=== PATIENT | female | born 1960 | race Caucasian/White ===

== ENCOUNTER 2018-09-26 20:06 | Emergency (ER) | payer BC ==
[2018-09-26 20:21] VITALS: BP 151/61
[2018-09-26] MEDS ORDERED: Lidocaine 1% 10 ML MDV INJECT ONE (20:29)
--- NOTE | 2018-09-26 21:06 | EDM.PDOC ---
ED HPI GENERAL MEDICAL PROBLEM - General Chief Complaint: Laceration Stated Complaint: RIGHT HAND LACERATION,PINKIE FINGER Time Seen by Provider: 09/26/18 20:15 Source of Information: Reports: Patient History Limitations: Reports: No Limitations - History of Present Illness INITIAL COMMENTS - FREE TEXT/NARRATIVE: The patient presents with a laceration to the right little finger. She was doing dishes and she cut her finger on a knife. She is right handed. Her tetanus is up to date. Onset: Sudden Duration: Minutes: Location: Reports: Lower Extremity, Right (little finger) Quality: Reports: Sharp Severity: Mild Improves with: Reports: None Worsens with: Reports: None Associated Symptoms: Reports: No Other Symptoms Right Finger-Little Pain Score (Numeric/FACES): 2 - Related Data Allergies Allergy/AdvReac Type Severity Reaction Status Date / Time No Known Allergies Allergy Verified 09/26/18 20:15 Home Meds: Home Meds Cholecalciferol (Vitamin D3) [Vitamin D3] 1 tab PO DAILY 06/22/14 [History] Fish Oil/[place]-3 Fatty Acids [Fish Oil 1,000 MG] 1 tab PO DAILY 06/22/14 [ History] Aspirin/Calcium Carbonate/Mag [Aspirin Buffered 325 mg Tab] 325 mg PO DAILY 03/31 [History] Dronedarone [Multaq] 400 mg PO BID 09/24/14 [History] L.acidoph,Paracasei, B.lactis [Probiotic] 1 cap PO DAILY 09/26/18 [History] Metoprolol Succinate 25 mg PO DAILY 09/26/18 [History] PARoxetine [Paxil] 10 mg PO DAILY 09/26/18 [History] Turmeric [Curcumin] 1 cap PO DAILY 09/26/18 [History] Past Medical History Cardiovascular History: Reports: Afib Other Cardiovascular History: AAA - 4.5mm since 09/2018 Social & Family History - Tobacco Use Smoking Status *Q: Never Smoker - Caffeine Use Caffeine Use: Reports: None - Recreational Drug Use Recreational Drug Use: No ED ROS GENERAL - Review of Systems Review Of Systems: See Below Constitutional: Reports: No Symptoms HEENT: Reports: No Symptoms Respiratory: Reports: No Symptoms Cardiovascular: Reports: No Symptoms Endocrine: Reports: No Symptoms GI/Abdominal: Reports: No Symptoms : Reports: No Symptoms Musculoskeletal: Reports: Other (laceration to the right little finger) ED EXAM, SKIN/RASH Exam: See Below Exam Limited By: No Limitations General Appearance: Alert, No Apparent Distress Ears: Normal External Exam Nose: Normal Inspection Head: Atraumatic, Normocephalic Neck: Normal Inspection Respiratory/Chest: No Respiratory Distress Extremities: Other (1.5cm laceration to the tip of the right little finger. Good sensation and capillary distally) ED SKIN PROCEDURES - Laceration/Wound Repair Right Digit - 5th (Baby) Lac/Wound length In cm: 1.5 Appearance: Subcutaneous, Linear Distal NVT: Neuro & Vascular Intact Anesthetic Type: Local Local Anesthesia - Lidocaine (Xylocaine): 1% Plain Skin Prep: Saline Exploration/Debridement/Repair: Wound Explored, In a Bloodless Field, Explored to Base Closed with: Sutures Suture Size: 4-0 # of Sutures: 3 Suture Type: Nylon, Interrupted, Simple Tetanus Status Addressed: Yes Complications: No Course - Vital Signs Last Recorded V/S: Last Vital Signs Temp 97.7 F 09/26/18 20:18 Pulse 66 09/26/18 20:18 Resp 20 09/26/18 20:18 BP 151/61 H 09/26/18 20:18 Pulse Ox 97 09/26/18 20:18 - Orders/Labs/Meds Meds: Medications Discontinued Medications Generic Name Dose Route Start Last Admin Trade Name Zelalem PRN Reason Stop Dose Admin Lidocaine HCl 10 ml 09/26/18 20:29 09/26/18 20:43 Xylocaine 1% INJECT 09/26/18 20:30 10 ml ONETIME ONE Administration Departure - Departure Time of Disposition: 21:10 Disposition: Home, Self-Care 01 Condition: Good Clinical Impression: Laceration of right little finger Qualifiers: Encounter type: initial encounter Damage to nail status: without damage Foreign body presence: without foreign body Qualified Code(s): S61.216A - Laceration without foreign body of right little finger without damage to nail, initial encounter - Discharge Information *PRESCRIPTION DRUG MONITORING PROGRAM REVIEWED*: Not Applicable *COPY OF PRESCRIPTION DRUG MONITORING REPORT IN PATIENT VAL: Not Applicable Referrals: Anjum Jordan MD [Primary Care Provider] - 1 Week Additional Instructions: Soak your finger in warm soapy water 2 times per day and apply antibiotic ointment after. Have the sutures removed in 1 week. Please return if you see any signs of infection such as redness, swelling, pain or drainage. If you see any of these signs please return or see your doctor. You may need oral antibiotics.
== END 2018-09-26 21:17 | disposition home or self-care (01) ==
LOC: JD.ED 20:06
DX: S61.216A Laceration without foreign body of right little finger without damage to nail, initial encounter (principal); I48.91 Unspecified atrial fibrillation; Z79.899 Other long term (current) drug therapy; Z79.82 Long term (current) use of aspirin; W26.0XXA Contact with knife, initial encounter
CPT/HCPCS: 12001; 99282; J2001

== ENCOUNTER 2018-11-08 19:51 | Emergency (ER) | payer BC ==
[2018-11-08 20:03] VITALS: BP 133/79
--- NOTE | 2018-11-08 23:55 | EDM.PDOC ---
ED HPI GENERAL MEDICAL PROBLEM - General Chief Complaint: Cardiovascular Problem Stated Complaint: AFIB Time Seen by Provider: 11/08/18 21:15 Source of Information: Reports: Patient, Old Records History Limitations: Reports: No Limitations - History of Present Illness INITIAL COMMENTS - FREE TEXT/NARRATIVE: 58-year-old female presents for evaluation and treatment of "A. fib". She has paroxysmal atrial fibrillation. Currently on muntaq bid, metoprolol daily and aspirin 325. She states that she has been ill for the last week with a dry cough , chills, fatigue and a sore throat. She has been taking DayQuil and NyQuil. She states that her stomach "feels funny". No nausea, vomiting or diarrhea. Patient reports that she is exhausted from having a fast heart rate. Currently on a monitor her heart rates in the 90s. She states normally she runs 60-65; she is exhausted from this. 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 Last visit with him was September 23. She did contact him only today and has not heard a back from him. She reports associated symptoms of shortness of breath, palpitations. She denies any chest pain. Primary care provider here is Dr. Liu. Duration: Day(s): (10) - Related Data Allergies Allergy/AdvReac Type Severity Reaction Status Date / Time No Known Allergies Allergy Verified 09/26/18 20:15 Home Meds: Home Meds Cholecalciferol (Vitamin D3) [Vitamin D3] 1 tab PO DAILY 06/22/14 [History] Fish Oil/[place]-3 Fatty Acids [Fish Oil 1,000 MG] 1 tab PO DAILY 06/22/14 [ History] Aspirin/Calcium Carbonate/Mag [Aspirin Buffered 325 mg Tab] 325 mg PO DAILY 03/31 [History] Dronedarone [Multaq] 400 mg PO BID 09/24/14 [History] L.acidoph,Paracasei, B.lactis [Probiotic] 1 cap PO DAILY 09/26/18 [History] Metoprolol Succinate 25 mg PO DAILY 09/26/18 [History] PARoxetine [Paxil] 10 mg PO DAILY 09/26/18 [History] Turmeric [Curcumin] 1 cap PO DAILY 09/26/18 [History] Amoxicillin 500 mg PO BID #20 capsule 11/08/18 [Rx] Benzonatate [Tessalon Perle] 100 mg PO TID PRN #15 capsule 11/08/18 [Rx] Past Medical History Cardiovascular History: Reports: Afib Other Cardiovascular History: AAA - 4.5mm since 09/2018 Social & Family History - Family History Family Medical History: Noncontributory - Tobacco Use Smoking Status *Q: Never Smoker - Caffeine Use Caffeine Use: Reports: None - Recreational Drug Use Recreational Drug Use: No ED ROS GENERAL - Review of Systems Review Of Systems: See Below Constitutional: Reports: Chills, Fatigue HEENT: Reports: Throat Pain Respiratory: Reports: Shortness of Breath, Cough Cardiovascular: Reports: Palpitations. Denies: Chest Pain GI/Abdominal: Reports: Abdominal Pain. Denies: Diarrhea, Nausea, Vomiting Musculoskeletal: Reports: Back Pain ED EXAM, GENERAL - Physical Exam Exam: See Below Exam Limited By: No Limitations General Appearance: Alert, WD/WN, No Apparent Distress Ears: Normal External Exam, Normal Canal, Hearing Grossly Normal, Normal TMs Nose: Normal Inspection Throat/Mouth: Normal Inspection, Normal Lips, Normal Voice, No Airway Compromise Respiratory/Chest: No Respiratory Distress, Lungs Clear, Normal Breath Sounds Cardiovascular: Normal Peripheral Pulses, Regular Rate, Rhythm, No Murmur Neurological: Alert, Oriented, Normal Cognition Psychiatric: Normal Affect, Normal Mood Skin Exam: Warm, Dry, Normal Color EKG INTERPRETATION EKG Date: 11/08/18 Time: 19:55 Rhythm: NSR Rate (Beats/Min): 97 EKG Interpretation Comments: normal sinus rhythm at 97 bpm. + LAE. No AVB. 1mm ST depression in the aterolateral leads. Normal transition. No LAD/RAD. No LVH/RVH. No IVCD. QTc within normal limits. Reviewed by myself and Dr. Mccartney. Course - Vital Signs Last Recorded V/S: Last Vital Signs Temp 99.7 F 11/08/18 19:58 Pulse 97 11/08/18 19:58 Resp 20 11/08/18 19:58 BP 133/79 11/08/18 19:58 Pulse Ox 98 11/08/18 19:58 - Orders/Labs/Meds Labs: Laboratory Tests 11/08/18 11/08/18 11/08/18 Range/Units 21:50 21:50 21:50 WBC 9.71 (3.98-10.04) K/mm3 RBC 4.13 (3.98-5.22) M/mm3 Hgb 12.0 D (11.2-15.7) gm/L Hct 36.1 (34.1-44.9) % MCV 87.4 (79.4-94.8) fl MCH 29.1 (25.6-32.2) pg MCHC 33.2 (32.2-35.5) g/dl RDW Std Deviation 39.5 (36.4-46.3) fL Plt Count 265 (182-369) K/mm3 MPV 9.8 (9.4-12.3) fl Neutrophils % (Manual) 66 H (40-60) % Band Neutrophils % 1 (0-10) % Lymphocytes % (Manual) 19 L (20-40) % Atypical Lymphs % 0 % Monocytes % (Manual) 9 (2-10) % Eosinophils % (Manual) 4 (0.7-5.8) % Basophils % (Manual) 1 (0.1-1.2) Platelet Estimate Adequate Plt Morphology Comment Normal RBC Morph Comment Normal Sodium 139 (136-145) mEq/L Potassium 3.7 (3.5-5.1) mEq/L Chloride 106 (98-107) mEq/L Carbon Dioxide 23 (21-32) mEq/L Anion Gap 13.7 (5-15) BUN 13 (7-18) mg/dL Creatinine 1.0 (0.55-1.02) mg/dL Est Cr Clr Drug Dosing 42.97 mL/min Estimated GFR (MDRD) 57 (>60) mL/min BUN/Creatinine Ratio 13.0 L (14-18) Glucose 129 H (74-106) mg/dL Calcium 9.1 (8.5-10.1) mg/dL Magnesium 2.4 (1.8-2.4) mg/dl Total Bilirubin 0.2 (0.2-1.0) mg/dL AST 16 (15-37) U/L ALT 22 (14-59) U/L Alkaline Phosphatase 56 (46-116) U/L Troponin I < 0.017 (0.00-0.056) ng/mL C-Reactive Protein 14.8 H* (<1.0) mg/dL Total Protein 7.5 (6.4-8.2) g/dl Albumin 2.9 L (3.4-5.0) g/dl Globulin 4.6 gm/dL Albumin/Globulin Ratio 0.6 L (1-2) TSH 3rd Generation 2.007 (0.358-3.74) uIU/mL - Radiology Interpretation Free Text/Narrative:: chest xray shows no acute intrathoracic process. Formal radiology read pending - Re-Assessments/Exams Free Text/Narrative Re-Assessment/Exam: 11/08/18 23:50 I reviewed the ekg, labs and chest xray with the patient. Will treat for bronchitis. Recommend she discuss her heart concerns further with her forestry laborer. No medications changes to be made tonight. HR has been consistently 70s-80s while in the ER. Will discharge home tonight. Discharge instructions as documented. Departure - Departure Time of Disposition: 23:50 Disposition: Home, Self-Care 01 Reason for Transfer *Q: Other Condition: Good Clinical Impression: Bronchitis Prescriptions: Amoxicillin 500 mg PO BID #20 capsule Benzonatate [Tessalon Perle] 100 mg PO TID PRN #15 capsule PRN Reason: Cough Instructions: Acute Bronchitis, Adult Referrals: Anjum Jordan MD [Primary Care Provider] - Forms: ED Department Discharge Additional Instructions: take the tessalon perles as prescribed 1 cap PO tid prn cough; take the amoxicillin as prescribed a cap IO bid x 10 days. take with food. contact your forestry laborer for further direction on your medications and changes. Your heart rate in the ER tonight was 70s-100s. Make sure you are drinking plenty of fluids. Please return to the ER should your symptoms change or worsen.
--- NOTE | 2018-11-09 07:32 | CR ---
Chest: Two views of the chest were obtained. Comparison: Prior chest x-ray of 09/25/14. Minimal atelectasis is noted within the left base. Heart size at the upper limits of normal. Tortuous thoracic aorta is seen. No acute parenchymal change is seen. Slight disc space narrowing is seen within the thoracic spine. Impression: 1. Findings believed to be incidental. Nothing acute is seen. Diagnostic code #2
== END 2018-11-09 00:06 | disposition home or self-care (01) ==
LOC: JD.ED 19:51
DX: J40 Bronchitis, not specified as acute or chronic (principal); I48.91 Unspecified atrial fibrillation; Z79.899 Other long term (current) drug therapy; Z79.82 Long term (current) use of aspirin
CPT/HCPCS: 36415; 71046; 71046-26; 80053; 83735; 84443; 84484; 85007; 85027; 86140; 93005; 99285-25

== ENCOUNTER 2020-06-24 12:03 | Emergency (ER) | payer BC ==
[2020-06-24] MEDS ORDERED: Sodium Chloride 0.9% 10 ML Syringe FLUSH PRN (12:23)
[2020-06-24] MEDS ORDERED: Sodium Chloride 0.9% 1,000 ML IV STA (12:29)
[2020-06-24] MEDS ORDERED: Metoclopramide 10 MG/2 ML SDV IVPUSH ONE (12:36)
[2020-06-24] MEDS ORDERED: diphenhydrAMINE 50 MG/ML SDV IVPUSH ONE (12:36)
--- NOTE | 2020-06-24 12:42 | EDM.PDOC ---
ED HPI GENERAL MEDICAL PROBLEM - General Chief Complaint: Neurological Problem Stated Complaint: DIZZY AND CHILLS Time Seen by Provider: 06/24/20 12:06 Source of Information: Reports: Patient, RN Notes Reviewed History Limitations: Reports: No Limitations - History of Present Illness INITIAL COMMENTS - FREE TEXT/NARRATIVE: Patient is a 59 year old female presenting to the ER with c/o dizziness, nausea, vomiting, chills, and intermittent tingling in her hands and feet. She states that last evening before going to bed, she felt mildly dizzy when standing. This morning when she woke up, she sat up in bed and had extreme dizziness which she states felt like the room is spinning followed by vomiting. She went to massage therapist who performed Mouna maneuvers. States she did feel somewhat better afterward, however states that the massage therapist told her that she thinks it something more than vertigo. She was seen at the walk-in clinic prior to coming here and diagnosed with vertigo. She received a dose of Zofran ODT as well as a prescription for meclizine. She has not taken the meclizine meclizine thus far. She denies any history of vertigo. She has had no ear pain or pressure. Denies any known fever. She did have a total of 2 episodes of vomiting which she states was associated the vertigo symptoms caused by sitting up or standing. She has had no recent falls or head injuries. Denies any respiratory complaints or chest pain. Headache Pain Score (Numeric/FACES): 3 - Related Data Allergies Allergy/AdvReac Type Severity Reaction Status Date / Time No Known Allergies Allergy Verified 06/24/20 12:15 Home Meds: Home Meds Cholecalciferol (Vitamin D3) [Vitamin D3] 1 tab PO DAILY 06/22/14 [History] Fish Oil/[place]-3 Fatty Acids [Fish Oil 1,000 MG] 1 tab PO DAILY 06/22/14 [History] Aspirin/Calcium Carbonate/Mag [Aspirin Buffered 325 mg Tab] 325 mg PO DAILY 09/24/14 [History] Dronedarone [Multaq] 400 mg PO BID 09/24/14 [History] Metoprolol Succinate 25 mg PO DAILY 09/26/18 [History] PARoxetine [Paxil] 10 mg PO DAILY 09/26/18 [History] Turmeric [Curcumin] 1 cap PO DAILY 09/26/18 [History] Meclizine [Antivert] 25 mg PO ASDIRECTED PRN 06/24/20 [History] Ondansetron [Zofran ODT] 4 mg PO Q6H PRN #10 tab.dis 06/24/20 [Rx] Past Medical History Cardiovascular History: Reports: Afib Other Cardiovascular History: AAA - 4.5mm since 09/2018 Social & Family History - Family History Family Medical History: No Pertinent Family History - Tobacco Use Tobacco Use Status *Q: Never Tobacco User Second Hand Smoke Exposure: No - Caffeine Use Caffeine Use: Reports: None - Recreational Drug Use Recreational Drug Use: No ED ROS GENERAL - Review of Systems Review Of Systems: See Below Constitutional: Reports: Chills. Denies: Fever, Weakness HEENT: Reports: Vertigo. Denies: Ear Pain, Eye Pain, Rhinitis Respiratory: Reports: No Symptoms. Denies: Shortness of Breath, Cough Cardiovascular: Reports: No Symptoms. Denies: Chest Pain Endocrine: Reports: No Symptoms GI/Abdominal: Reports: Nausea, Vomiting. Denies: Abdominal Pain : Reports: No Symptoms Musculoskeletal: Reports: No Symptoms Skin: Reports: No Symptoms Neurological: Reports: Tingling (bilateral hands and feet), Difficulty Walking (unsteady gait). Denies: Change in Speech Psychiatric: Reports: No Symptoms Hematologic/Lymphatic: Reports: No Symptoms Immunologic: Reports: No Symptoms ED EXAM, NEURO - Physical Exam Exam: See Below Exam Limited By: No Limitations General Appearance: Alert, WD/WN, No Apparent Distress Eye Exam: Bilateral Eye: PERRL, Other (no visible nystagmus) Ears: Normal External Exam, Normal Canal, Hearing Grossly Normal, Normal TMs Head Exam: Atraumatic, Normocephalic Respiratory/Chest: No Respiratory Distress, Lungs Clear, Normal Breath Sounds, No Accessory Muscle Use, Chest Non-Tender Cardiovascular: Normal Peripheral Pulses, Regular Rate, Rhythm, No Edema, No Gallop, No JVD, No Murmur, No Rub GI/Abdominal: Normal Bowel Sounds, Soft, Non-Tender, No Organomegaly, No Distention, No Abnormal Bruit, No Mass Neurological: Alert, Normal Mood/Affect, Normal Dorsiflexion, CN II-XII Intact, Normal Plantar Flexion, Normal Reflexes, No Motor/Sensory Deficits, Oriented x 3, Other (no dizziness with lateral head turning. Significant vertigo symptoms repoducable by going from a lying to upright sitting position.) Psychiatric: Normal Affect, Normal Mood Skin Exam: Warm, Dry, Intact, Normal Color, No Rash #1 Interpretation EKG Date: 06/24/20 Time: 12:25 Rhythm: NSR Rate (Beats/Min): 53 [place]: Normal P-Wave: Present QRS: Normal ST-T: Normal QT: Normal Course - Vital Signs Last Recorded V/S: Last Vital Signs Temp 96.9 F 06/24/20 13:58 Pulse 66 06/24/20 13:58 Resp 16 06/24/20 13:58 BP 95/43 L 06/24/20 13:58 Pulse Ox 100 06/24/20 13:58 - Orders/Labs/Meds Orders: Active Orders 24 hr Category Date Time Status EKG Documentation Completion [RC] STAT Care 06/24/20 12:23 Active Peripheral IV Care [RC] . DIRECTED Care 06/24/20 12:23 Active Sodium Chloride 0.9% [Saline Flush] Med 06/24/20 12:23 Active 10 ml FLUSH ASDIRECTED PRN Peripheral IV Insertion Adult [OM.PC] Stat Oth 06/24/20 12:23 Ordered Medication Orders Sodium Chloride (Saline Flush) 10 ml FLUSH ASDIRECTED PRN PRN Reason: Keep Vein Open Last Admin: 06/24/20 12:51 Dose: 10 ml Documented by: HEIDI Labs: Laboratory Tests 06/24/20 06/24/20 Range/Units 12:30 12:30 WBC 5.95 (3.98-10.04) K/mm3 RBC 4.99 (3.98-5.22) M/mm3 Hgb 14.5 D (11.2-15.7) gm/dl Hct 43.2 (34.1-44.9) % MCV 86.6 (79.4-94.8) fl MCH 29.1 (25.6-32.2) pg MCHC 33.6 (32.2-35.5) g/dl RDW Std Deviation 39.8 (36.4-46.3) fL Plt Count 239 (182-369) K/mm3 MPV 10.3 (9.4-12.3) fl Neut % (Auto) 72.9 H (34.0-71.1) % Lymph % (Auto) 21.7 (19.3-51.7) % [place] % (Auto) 4.4 L (4.7-12.5) % Eos % (Auto) 0.5 L (0.7-5.8) Baso % (Auto) 0.3 (0.1-1.2) % Neut # (Auto) 4.34 (1.56-6.13) K/mm3 Lymph # (Auto) 1.29 (1.18-3.74) K/mm3 [place] # (Auto) 0.26 (0.24-0.36) K/mm3 Eos # (Auto) 0.03 L (0.04-0.36) K/mm3 Baso # (Auto) 0.02 (0.01-0.08) K/mm3 Sodium 142 (136-145) mEq/L Potassium 4.0 (3.5-5.1) mEq/L Chloride 104 (98-107) mEq/L Carbon Dioxide 23 (21-32) mEq/L Anion Gap 19.0 H (5-15) BUN 16 (7-18) mg/dL Creatinine 1.1 H (0.55-1.02) mg/dL Est Cr Clr Drug Dosing 38.58 mL/min Estimated GFR (MDRD) 50 (>60) mL/min BUN/Creatinine Ratio 14.5 (14-18) Glucose 113 (80-115) mg/dL Calcium 9.3 (8.5-10.1) mg/dL Magnesium 2.0 (1.8-2.4) mg/dl Total Bilirubin 0.6 (0.2-1.0) mg/dL AST 21 (15-37) U/L ALT 31 (14-59) U/L Alkaline Phosphatase 58 (46-116) U/L C-Reactive Protein <0.2 (<1.0) mg/dL Total Protein 7.8 (6.4-8.2) g/dl Albumin 3.6 (3.4-5.0) g/dl Globulin 4.2 gm/dL Albumin/Globulin Ratio 0.9 L (1-2) Meds: Medications Generic Name Dose Route Start Last Admin Trade Name Freq PRN Reason Stop Dose Admin Sodium Chloride 10 ml 06/24/20 12:23 06/24/20 12:51 Saline Flush FLUSH 10 ml ASDIRECTED PRN Administration Keep Vein Open Discontinued Medications Generic Name Dose Route Start Last Admin Trade Name Zelalem PRN Reason Stop Dose Admin Diphenhydramine HCl 50 mg 06/24/20 12:36 06/24/20 12:55 Benadryl IVPUSH 06/24/20 12:37 50 mg ONETIME ONE Administration Sodium Chloride 1,000 mls @ 999 mls/hr 06/24/20 12:29 06/24/20 12:57 Normal Saline IV 06/24/20 13:29 999 mls/hr NOW STA Administration Metoclopramide HCl 7.5 mg 06/24/20 12:36 06/24/20 12:52 Reglan IVPUSH 06/24/20 12:37 7.5 mg ONETIME ONE Administration - Re-Assessments/Exams Free Text/Narrative Re-Assessment/Exam: 06/24/20 14:13 Hematology was significant for anion gap elevated 19.0 and creatinine elevated at 1.1, indicating the patient is hemoconcentrated. Blood work was otherwise unremarkable. CT scan of the head showed no acute abnormalities. Patient is feeling significantly better after the IV fluids, Reglan, and Benadryl. She is able to get up and move around without vomiting. I will provide her with a paper prescription for Zofran. She currently has a prescription for meclizine. Discussed follow-up with primary care provider or audiology if symptoms do not improve. Discussed return precautions to ER. Discharge instructions as documented. Departure - Departure Time of Disposition: 14:13 Disposition: Home, Self-Care 01 Condition: Good Clinical Impression: Vertigo - Discharge Information *PRESCRIPTION DRUG MONITORING PROGRAM REVIEWED*: No *COPY OF PRESCRIPTION DRUG MONITORING REPORT IN PATIENT VAL: No Prescriptions: Ondansetron [Zofran ODT] 4 mg PO Q6H PRN #10 tab.dis PRN Reason: Nausea/Vomiting Instructions: Vertigo, [id number] Referrals: Anjum Jordan MD [Primary Care Provider] - Forms: ED Department Discharge Additional Instructions: You were seen in the emergency department today for dizziness, nausea, vomiting, and tingling in your extremities. Work-up included blood work, and a CT scan of your head. Results your work-up show that you are mildly dehydrated but was otherwise normal. While in the ER, you received a liter of IV fluids, Benadryl, and Reglan which did significantly improve your vertigo symptoms. You have been provided a prescription for Zofran. Fill this as needed for nausea, vomiting, and vertigo symptoms not relieved by your existing prescription for meclizine. If you continue to have symptoms after a few days, recommend follow-up with either your primary care provider or audiology. You may also see your massage therapist who is trained in Mouna maneuvers. Return to ER for any new or worsening symptoms of concern. Sepsis Event Note (ED) - Evaluation Sepsis Screening Result: No Definite Risk - Focused Exam Vital Signs: Vital Signs Temp Pulse Resp BP Pulse Ox 06/24/20 13:58 96.9 F 66 16 95/43 L 100 06/24/20 12:12 96.8 F L 55 L 16 139/62 100 - My Orders Last 24 Hours: My Active Orders 06/24/20 12:23 EKG Documentation Completion [RC] STAT Peripheral IV Care [RC] . DIRECTED Sodium Chloride 0.9% [Saline Flush] 10 ml FLUSH ASDIRECTED PRN Peripheral IV Insertion Adult [OM.PC] Stat - Assessment/Plan Last 24 Hours: My Active Orders 06/24/20 12:23 EKG Documentation Completion [RC] STAT Peripheral IV Care [RC] . DIRECTED Sodium Chloride 0.9% [Saline Flush] 10 ml FLUSH ASDIRECTED PRN Peripheral IV Insertion Adult [OM.PC] Stat
--- NOTE | 2020-06-24 13:13 | CT ---
Head CT Technique: Multiple axial sections through the brain were obtained. Intravenous contrast was not utilized. Reconstructed coronal and sagittal images were obtained. Findings: Ventricles along with basal cisterns and sulci over the convexities are slightly prominent. Minimal diminished density is noted within the small portion of the periventricular white matter most likely representing minimal small vessel ischemic demyelination change. No other abnormal parenchymal densities are seen. No evidence of intracranial hemorrhage. No midline shift or mass-effect is appreciated. Bone window settings were reviewed which show no acute calvarial finding. Slight atherosclerotic calcification is noted within the right vertebral vessel and within a small portion within the cavernous sinuses. Visualized paranasal sinuses and mastoid sinuses are clear. Impression: 1. Slight senescent change as noted above. 2. Nothing acute is identified on noncontrast head CT study Diagnostic code #2
[2020-06-24 14:14] VITALS: BP 109/55; PULSE 64
== END 2020-06-24 14:25 | disposition home or self-care (01) ==
LOC: JD.ED 12:03
DX: R42 Dizziness and giddiness (principal); R11.2 Nausea with vomiting, unspecified; R20.2 Paresthesia of skin; R26.2 Difficulty in walking, not elsewhere classified; R68.83 Chills (without fever); I48.91 Unspecified atrial fibrillation
CPT/HCPCS: 36415; 70450; 80053; 83735; 85025; 86140; 93005; 96374; 96375; 99284; J1200; J2765; J7030; 93010

== ENCOUNTER 2022-08-04 10:06 | Emergency (ER) | payer BC ==
[2022-08-04] MEDS ORDERED: Sodium Chloride 0.9% 10 ML Syringe FLUSH PRN (10:32)
[2022-08-04 11:07] LABS: ESTIMATED GFR 46 mL/min (>60)
[2022-08-04] MEDS ORDERED: Sodium Chloride 0.9% 1,000 ML IV ONE (11:23)
[2022-08-04 11:24] VITALS: PULSE 72
[2022-08-04 12:09] LABS: CORONAVIRUS COVID-19 NAA NEGATIVE (NEGATIVE)
[2022-08-04 18:44] VITALS: BP 118/55
== END 2022-08-04 14:55 | disposition home or self-care (01) ==
LOC: JD.ED 10:06
DX: A08.4 Viral intestinal infection, unspecified (principal); R06.02 Shortness of breath; I48.91 Unspecified atrial fibrillation; Z79.899 Other long term (current) drug therapy; Z79.82 Long term (current) use of aspirin; Z20.822 Contact with and (suspected) exposure to COVID-19
CPT/HCPCS: 0241U; 36415; 71046; 80053; 83880; 84484; 85025; 85379; 85610; 85730; 86140; 86308; 87045; 87046; 87493; 87899; 93005; 96360; 99285; J3490; J7030; 93010; 99283